=== PATIENT | female | born 1985 | race American Indian/Alaskan Native ===

== ENCOUNTER 2016-06-27 15:05 | Outpatient (CLI) | payer MEDICAID ==
[2016-06-27] MEDS ORDERED: LACTATED RINGERS 500 ML IV ONE (18:30)
[2016-06-27] MEDS ORDERED: TYLENOL PO ONE (18:45)
[2016-06-27 20:08] LABS: Bacteria,Urine 1+ /HPF (Negative); Bilirubin,Urine NEG (Negative); Blood,Urine NEG (Negative); Ketones,Urine 20 mg/dL (Negative); Leukocyte Esterase,Urine NEG (Negative); Mucus,Urine FEW /HPF; Nitrite,Urine NEG (Negative); Protein,Urine <15 mg/dL mg/dL (Negative)
== END 2016-06-27 19:23 | disposition home or self-care (01) ==
LOC: TRG 15:05 → LD 17:03 → TRG 19:23
PROVIDERS: ATTEND Obstetrics & Gynecology Gynecology
DX: O26.892 Other specified pregnancy related conditions, second trimester (principal); R10.9 Unspecified abdominal pain; R51 Headache; R42 Dizziness and giddiness; Z3A.25 25 weeks gestation of pregnancy
CPT/HCPCS: 59025; 81001; 96360; J7120

== ENCOUNTER 2016-08-24 13:52 | Outpatient (CLI) | payer MEDICAID ==
[2016-08-24 15:49] VITALS: BP 120/72
--- NOTE | 2016-08-27 07:36 | Ultrasound Report ---
ULTRASOUND OB LIMITED History: Decreased movement Technique: Transabdominal ultrasound with Doppler interrogation. Gestation: Single Position: Cephalic Amniotic Fluid: Normal KINGSLEY = 12.4 cm Heart Rate: Ranged from 143-191 BPM
--- NOTE | 2016-08-27 07:36 | Ultrasound Report ---
ULTRASOUND BIOPHYSICAL PROFILE: History: Decreased movement Technique: Transabdominal ultrasound with Doppler interrogation. 2 - breathing movements 2 - movements 2 - posture and tone 2 - Qualitative amniotic fluid volume 8 - TOTAL SCORE OF POSSIBLE 8 Heart Rate (bpm) 143
== END 2016-08-24 16:53 | disposition home or self-care (01) ==
LOC: TRG 13:52
PROVIDERS: ATTEND Obstetrics & Gynecology
DX: O47.03 False labor before 37 completed weeks of gestation, third trimester (principal); Z3A.33 33 weeks gestation of pregnancy
CPT/HCPCS: 59025; 76815; 76819

== ENCOUNTER 2016-09-24 10:52 | Inpatient (IN) | payer MEDICAID ==
[2016-09-24] MEDS ORDERED: PITOCin/NS 20 UNIT/1000ML DRIP 20,000 MILLIUNITS/1,000 ML BAG IV ONE (11:15)
--- NOTE | 2016-09-24 11:35 | Procedure Note ---
OB Delivery Note - Delivery Date of Delivery: 09/24/16 Surgeon: NIRAV EVANS Estimated blood loss: other (400 cc) - Vaginal Delivery presentation: vertex Delivery position: OA Intrapartum events: precipitous labor- <3hr Delivery induction: none Delivery monitor: external FHT, external uterine Route of delivery: Delivery placenta: spontaneous Delivery cord: 3 umbilical vessels Episiotomy: none Delivery laceration: none Anesthesia: none - Infant A at 1 minute: 8 at 5 minutes: 9 Infant Gender: Female (Del @ 11:19, weight is 5#14 or 2664 g)
--- NOTE | 2016-09-24 11:40 | History and Physical Report ---
History of Present Illness Date of examination: 09/24/16 Date of admission: 09/24/16 10:56 Chief complaint: Precipitate delivery History of present illness: 31-year-old at 38 wks status post delivery today, and patient in stable condition. Status post SROM at ~ 8:30 this morning with subsequent onset of contractions. NegativeGBS neg Past History Past Medical History: no pertinent history Past Surgical History: no surgical history [employer] History: denies: chlamydia, gonorrhea, hepatitis B, hepatitis C, herpes, HIV , syphilis, trichomonas Social history: , full code. denies: smoking, alcohol abuse, prescription drug abuse, IV drug use - Obstetrical History Expected Date of Delivery: 10/05/16 Actual Gestation: 38 Week(s) 3 Day(s) : 4 Medications and Allergies Allergies Allergy/AdvReac Type Severity Reaction Status Date / Time No Known Allergies Allergy Verified 03/09/16 20:10 Review of Systems Constitutional: no fever, no chills Cardiovascular: no chest pain, no orthopnea, no syncope, no lightheadedness, no shortness of breath Respiratory: no excessive sputum, no shortness of breath, no dyspnea on exertion Gastrointestinal: no abdominal pain, no nausea, no vomiting - Vital Signs Vital signs: Vital Signs Pulse Pulse Ox 92 H 100 09/24/16 10:58 09/24/16 10:58 Temp Pulse Resp BP Pulse Ox 61 169/96 100 09/24/16 11:29 09/24/16 11:29 09/24/16 10:58 - Physical Exam Abdomen: Positive: normal appearance, soft. Negative: distention, tenderness Results All other labs normal. Assessment and Plan PPD# 0 s/p -Doing well P: -Routine -Anticipate discharge in 24-48 hours - Patient Problems (1) Precipitous delivery, delivered (current hospitalization) Current Visit: Yes Status: Acute (2) 38 weeks gestation of Current Visit: Yes Status: Acute
[2016-09-24] MEDS ORDERED: TUCKS PAD TP PRN (11:42)
[2016-09-24] MEDS ORDERED: NORCO 5/325 PO PRN (11:42)
[2016-09-24] MEDS ORDERED: MILK OF MAGNESIA PO PRN (11:42)
[2016-09-24] MEDS ORDERED: PHENERGAN PR PRN (11:42)
[2016-09-24] MEDS ORDERED: ZOFRAN IV PRN (11:42)
[2016-09-24] MEDS ORDERED: DERMOPLAST TP PRN (11:42)
[2016-09-24] MEDS ORDERED: LANSINOH TP PRN (11:42)
[2016-09-24] MEDS ORDERED: PHENERGAN PO PRN (11:42)
[2016-09-24] MEDS ORDERED: DULCOLAX PR PRN (11:42)
[2016-09-24] MEDS ORDERED: ANUCORT-HC PR PRN (11:42)
[2016-09-24] MEDS ORDERED: BENADRYL PO PRN (11:42)
[2016-09-24] MEDS ORDERED: TYLENOL PO PRN (11:42)
[2016-09-24] MEDS ORDERED: PITOCin/NS 20 UNIT/1000ML DRIP 20 UNITS/1,000 ML BAG IV SCH (12:00)
[2016-09-24] MEDS ORDERED: SODIUM CHLORIDE FLUSH SYRINGE 10 ML IV NR (12:00)
[2016-09-24] MEDS: COLACE PO SCH (22:16)
[2016-09-24] MEDS: SENOKOT S PO SCH (22:16)
[2016-09-24] MEDS: FEOSOL PO SCH (22:16)
[2016-09-24] MEDS: MOTRIN PO SCH (23:51)
[2016-09-25 00:26] LABS: Hematocrit 28.6 % (30.3-42.9); Hemoglobin 9.7 gm/dl (10.1-14.3)
[2016-09-25] MEDS: MOTRIN PO SCH (05:19)
--- NOTE | 2016-09-25 08:02 | Progress Note ---
Assessment and Plan PPD# 1 s/p -Doing well P: -Routine -Anticipate discharge in 24-48 hours - Patient Problems (1) Precipitous delivery, delivered (current hospitalization) Current Visit: Yes Status: Acute (2) 38 weeks gestation of Current Visit: Yes Status: Acute Subjective - Subjective Date of service: 09/25/16 Principal diagnosis: PPD# 1 Interval history: Seen and examined, stable and doing well. No issues Patient reports: appetite normal, voiding normally, pain well controlled, ambulating normally, no dizzy ambulation, no nauseated : doing well Objective - Vital Signs Latest vital signs: Vital Signs Temp Pulse Pulse Resp BP BP Pulse Ox 09/25/16 05:19 18 09/25/16 00:33 98.6 F 70 20 118/69 09/24/16 21:47 98.3 F 79 20 128/77 09/24/16 16:00 98.0 F 88 20 124/78 09/24/16 13:45 98.7 F 78 18 123/73 09/24/16 13:13 65 127/75 09/24/16 12:58 83 141/89 09/24/16 12:43 72 142/92 09/24/16 12:28 69 156/81 09/24/16 11:58 68 132/93 09/24/16 11:37 60 135/83 88 09/24/16 11:36 83 L 09/24/16 11:29 61 169/96 09/24/16 11:16 77 133/94 09/24/16 11:00 74 150/98 09/24/16 10:58 92 H 100 Intake and Output 09/24/16 09/25/16 09/25/16 22:59 06:59 14:59 Intake Total 360 240 Output Total 600 Balance -240 240 Intake: Intake, Free Water 360 240 Output: Urine 600 Void 600 Other: Total, Output Amount 300 # Voids Void 1 - Exam Abdomen: Present: normal appearance, soft. Absent: distention, tenderness, guarding, rigidity Uterus: Present: firm, fundal height at umbilicus. Absent: tenderness Extremities: Present: normal - Labs Labs: Abnormal lab results 09/24/16 Range/Units 23:22 Hgb 9.7 L (10.1-14.3) gm/dl Hct 28.6 L (30.3-42.9) %
--- NOTE | 2016-09-25 08:03 | Discharge Summary ---
Providers - Providers Date of Admission: 09/24/16 10:56 Date of discharge: 09/26/16 Attending physician: NIRAV EVANS Primary care physician: NIRAV EVANS Hospitalization Reason for admission: active labor, IUP at term Delivery: Episiotomy: none Laceration: none complications: none Discharge diagnosis: IUP at term delivered [place] baby: female Hospital course: Uncomplicated hospital course Condition at discharge: Good Disposition: DISCHARGED TO HOME OR SELFCARE - Discharge Diagnoses (1) Precipitous delivery, delivered (current hospitalization) Status: Acute (2) 38 weeks gestation of Status: Acute Plan - Discharge Medications Prescriptions: Multivitamin with Iron [Multivitamins with Iron] 1 each PO DAILY #30 tablet - Provider Discharge Summary Activity: no sex for 6 weeks, no heavy lifting 4 weeks, no strenuous exercise Diet: routine Additional instructions: [] Smoking cessation referral if applicable(refer to patient education folder for contact #) [] Refer to [facility]'s [facility] [address] Booklet Call your doctor immediately for: * Fever > 100.5 * Heavy vaginal bleeding ( >1 pad per hour) * Severe persistent headache * Shortness of breath * Reddened, hot, painful area to leg or breast * Drainage or odor from incision. * Keep incision clean and dry at all times and follow doctor's instructions regarding bathing/showering - Follow up plan Follow up: NIRAV EVANS MD [Primary Care Provider] - 7 Days
[2016-09-25] MEDS: COLACE PO SCH ×2 (12:07→22:11)
[2016-09-25] MEDS: PRENATAL VITAMIN PO SCH (12:08)
[2016-09-25] MEDS: FEOSOL PO SCH ×2 (12:08→22:11)
[2016-09-26] MEDS: MOTRIN PO SCH (00:15)
[2016-09-26] MEDS: SENOKOT S PO SCH (00:20)
[2016-09-26] MEDS ORDERED: DEPO-PROVERA (CONTRACEPTION) IM ONE ×2 (09:00→11:22)
[2016-09-26 09:55] VITALS: BP 131/82
[2016-09-26] MEDS: PRENATAL VITAMIN PO SCH (11:43)
[2016-09-26] MEDS: COLACE PO SCH (11:43)
[2016-09-26] MEDS: FEOSOL PO SCH (11:44)
== END 2016-09-26 12:00 | disposition home or self-care (01) | DRG 775 ==
LOC: TRG 10:52 → LD 10:56 → OB 13:53
PROVIDERS: ADMIT Obstetrics & Gynecology Gynecology; ATTEND Obstetrics & Gynecology Gynecology
PROC: 10E0XZZ Delivery of Products of Conception, External Approach (ICD-10-PCS; principal; 2016-09-25)
DX: O62.3 Precipitate labor (principal); Z3A.38 38 weeks gestation of pregnancy; Z37.0 Single live birth
CPT/HCPCS: 36415; 85014; 85018; 99211; A6250; G0463; J1050; J2405; J2590

== ENCOUNTER 2018-02-07 08:43 | Emergency (ER) | payer SELFPAY ==
[2018-02-07 08:54] VITALS: BP 122/76
--- NOTE | 2018-02-07 09:35 | Emergency Department Report ---
ED Rash HPI - HPI Chief Complaint: Skin Rash Stated Complaint: BUMPS/TRUNK AREA Time Seen by Provider: 02/07/18 09:18 Duration: Today Location: Other (buttock) Rash Symptoms: No Itching, No Facial Swelling, No Tongue/Oral Swelling, No Breathing Difficulties, No Choking Sensation, No Wheezing/Dyspnea, No Peeling, No Blistering, No Fever Severity: mild Other History: several bumps on left buttocks ED Review of Systems ROS: Stated complaint: BUMPS/TRUNK AREA Other details as noted in HPI Constitutional: denies: fever, malaise Respiratory: denies: shortness of breath Skin: rash, lesions ED Past Medical Hx - Past Medical History Hx Hypertension: No Hx Congestive Heart Failure: No Hx Diabetes: No Hx Deep Vein Thrombosis: No Hx Renal Disease: No Hx Sickle Cell Disease: Yes (Trait) Hx Seizures: No Hx Asthma: No Hx COPD: No Hx HIV: No - Surgical History Past Surgical History?: No - Social History Smoking Status: Never Smoker Substance Use Type: None - Medications Home Medications: Home Medications Medication Instructions Recorded Confirmed Last Taken Type Multivitamin with Iron 1 each PO DAILY #30 tablet 09/24/16 Unknown Rx [Multivitamins with Iron] Vitamin Plus Low Iron 1 tab PO DAILY 09/24/16 09/24/16 Unknown History Rash Exam - Exam General: Vital signs noted. No distress. Alert and acting appropriately. HEENT: No Periorbital Edema, No Conjuctival Injection, No Chemosis, No Perioral Edema, No Tongue Edema, No Uvular Edema, No Compromised Airway, No Drooling Lungs: No Labored Respirations, No Retractions, No Use of Accessory Muscles Skin: No Other (4 small pustular lesions) ED Course Vital Signs 02/07/18 08:51 Temperature 98.4 F Pulse Rate 90 Respiratory 18 Rate Blood Pressure 122/76 O2 Sat by Pulse 100 Oximetry ED Medical Decision Making - Medical Decision Making 4 whiteheads in the buttock area, I recommended heat therapy, warm soaks, OTC antibiotic ointment Critical care attestation.: If time is entered above; I have spent that time in minutes in the direct care of this critically ill patient, excluding procedure time. ED Disposition Clinical Impression: Yusuf, Rash, Folliculitis Disposition: TO HOME OR SELFCARE Is pt being admited?: No Does the pt Need Aspirin: No Condition: Stable Instructions: Antiacne Antibacterial (On the skin), Folliculitis (ED) Referrals: [facility] [Outside] - as needed Forms: Work/School Release Form(ED)
== END 2018-02-07 09:53 | disposition home or self-care (01) ==
LOC: ED 08:43
DX: L70.0 Acne vulgaris (principal); L73.8 Other specified follicular disorders; D57.3 Sickle-cell trait
CPT/HCPCS: 99282